=== PATIENT | female | born 1950 | race Two or more races ===

== ENCOUNTER 2021-01-30 14:25 | Emergency (ER) | payer SELFPAY ==
[~2021-01-30] VITALS: Ht 157.5 cm; Wt 67.0 kg
[2021-01-30] MEDS ORDERED: IBUPROFEN 600MG TABLET PO ONE (15:15)
[2021-01-30 15:34] VITALS: BP 130/70
== END 2021-01-30 16:43 | disposition home or self-care (01) ==
LOC: ER 14:25
DX: S40.011A Contusion of right shoulder, initial encounter (principal); E03.9 Hypothyroidism, unspecified; W10.8XXA Fall (on) (from) other stairs and steps, initial encounter; Y93.01 Activity, walking, marching and hiking; Y92.813 Airplane as the place of occurrence of the external cause; Z85.850 Personal history of malignant neoplasm of thyroid
CPT/HCPCS: 73030; 99283